=== PATIENT | male | born 1960 | race Caucasian/White ===

== ENCOUNTER 2021-01-29 20:54 | Emergency (ER) | payer OTHER ==
[~2021-01-29] VITALS: Ht 177.8 cm; Wt 111.1 kg
[2021-01-29] MEDS ORDERED: HYDROCODON-ACE1 EAC8 PO (23:30)
[2021-01-30 00:06] VITALS: BP 130/76
== END 2021-01-30 00:06 | disposition home or self-care (01) ==
LOC: M.ERS 20:54
DX: M25.461 Effusion, right knee (principal); I10 Essential (primary) hypertension; E11.9 Type 2 diabetes mellitus without complications; Z86.718 Personal history of other venous thrombosis and embolism

== ENCOUNTER 2021-08-22 16:49 | Inpatient (IN) | payer OTHER ==
[~2021-08-22] VITALS: Ht 177.8 cm; Wt 124.3 kg
[~2021-08-22 16:49] MED LIST: HYDROCODON-ACE1 EAC8 PO
[2021-08-22 17:07] VITALS: BP 130/94
[2021-08-22] MEDS ORDERED: XANAX 0.5 MG0.5 M1 PO (17:11)
[2021-08-22] MEDS ORDERED: GLEEVEC100 MG PO (17:11)
[2021-08-22] MEDS ORDERED: LISINOPRIL10 MG PO (17:11)
[2021-08-22] MEDS ORDERED: GLIPIZIDE 10 MG10 MG PO (17:11)
[2021-08-22 17:49] LABS: ABSOLUTE EOSINOPHILS 0.1 thou/uL (0.0-0.7); ABSOLUTE LYMPHOCYTES 1.3 thou/uL (0.8-5.3); ABSOLUTE MONOCYTES 0.7 thou/uL (0.0-1.2); ABSOLUTE NEUTROPHILS 5.1 thou/uL (1.6-8.1); BASOPHILS 0.3 %; EOSINOPHILS 0.9 %; HEMATOCRIT 36.7 % (42.0-52.0); HEMOGLOBIN 11.9 gm/dL (14.0-18.0); LYMPHOCYTES 18.4 %; MCH 33.9 pg (26.0-34.0); MCHC 32.5 g/dL (28.0-37.0); MCV 104.4 fL (80.0-100.0); MONOCYTES 9.8 %; MPV 6.9 fl. (7.2-11.1); NUCLEATED RBCS 0 /100WBC; PLATELET COUNT* 213 thou/uL (150-400); POLYS 70.6 %; RBC 3.51 mil/uL (4.50-6.00); RDW-CV 16.6 % (10.5-14.5); WBC 7.2 thou/uL (4.0-11.0)
[2021-08-22 17:54] LABS: CALCIUM 8.1 mg/dL (8.5-10.1); CREATININE 1.9 mg/dL (0.6-1.3); POTASSIUM 4.4 mmol/L (3.5-5.1)
[2021-08-22 18:05] LABS: ALBUMIN 2.6 g/dL (3.4-5.0); TOTAL BILIRUBIN 0.5 mg/dL (<0.1-1.0); TOTAL PROTEIN 5.5 g/dL (6.4-8.2)
[2021-08-22 22:14] VITALS: BP 108/66
[2021-08-22 23:14] VITALS: BP 107/60
[2021-08-23] VITALS (19 sets, daily range): BP systolic 49–128; BP diastolic 35–82
--- NOTE | 2021-08-23 11:02 | EKG ---
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1960 Requested By: Miladys Strauss Order Number: [id number] MD: Henry Frazier Measurements Intervals [place] Rate: 161 P: -48 UT: 86 QRS: -83 QRSD: 152 T: 83 QT: 336 QTc: 550 Interpretive Statements Wide QRS tachycardia of unspecified mechanism No previous ECG available for comparison Electronically Signed On 08-23-2021 11:02:46 PEDIATRIC MEDICAL ASSISTANT by Henry Frazier [email or web address] <ELECTRONICALLY SIGNED> By: Henry Frazier MD, [facility] 08/23/21 1102 1716 1716 Henry Frazier MD, [facility] /EPI
--- NOTE | 2021-08-23 11:04 | EKG ---
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[place] : 1960 Requested By: Adam Husain Order Number: [id number] MD: Henry Frazier Measurements Intervals [place] Rate: 147 P: [place]: QRS: -84 QRSD: 177 T: 85 QT: 367 QTc: 575 Interpretive Statements Wide QRS tachycardia which suggest atrial fibrillation with a rapid response RBBB and LAFB No previous ECG available for comparison Electronically Signed On 08-23-2021 11:04:04 QUAHOGGER by Henry Frazier [email or web address] <ELECTRONICALLY SIGNED> By: Henry Frazier MD, [facility] 08/23/21 1104 43 43 Henry Frazier MD, [facility] /EPI
--- NOTE | 2021-08-23 11:06 | EKG ---
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[place] : 1960 Requested By: Adam Husain Order Number: [id number] MD: Henry Frazier Measurements Intervals [place] Rate: 104 P: [place]: QRS: -84 QRSD: 186 T: 87 QT: 355 QTc: 467 Interpretive Statements Atrial fibrillation RBBB and LAFB Abnormal T, consider ischemia, lateral leads Compared to ECG 08/22/2021 19:44:28 T-wave abnormality now present Possible ischemia now present Ventricular response to atrial fibrillation has decreased Electronically Signed On 08-23-2021 11:06:18 REEL BLADE BENDER FURNACE TENDER by Henry Frazier [email or web address] <ELECTRONICALLY SIGNED> By: Henry Frazier MD, FACC 08/23/21 1106 39 39 Henry Frazier MD, [facility] /EPI
--- NOTE | 2021-08-23 12:57 | 2DMMODE ---
[place] [address] 2 D/M-MODE ECHOCARDIOGRAM Name: MARTHA LA Raj Room: [address] ADM IN .R.#: [id number] Admission: 08/22/21 Attend Phys: Miladys Strauss Discharge: Date of : 58 Date of Service: 08/23/21 1257 Report #: [id number] THIS REPORT FOR: cc: Tommy Brand MD, Anthony MD Holkins,Henry Guevara MD [facility] ~ APPROVED REPORT Study performed: 08/23/2021 10:08:00 EXAM: Comprehensive 2D, Doppler, and color-flow Echocardiogram Patient Location: In-Patient Room #: 008 Status: routine BSA: 2.39 HR: 87 bpm BP: 114/71 mmHg Rhythm: Atrial Fibrillation Other Information Study Quality: Good Indications Atrial Fibrillation 2D Dimensions IVSd: 11.68 (7-11mm) LVOT Diam: 22.73 (18-24mm) LVDd: 62.08 mm PWd: 13.02 (7-11mm) Ascending Ao: 33.91 (22-36mm) LVDs: 49.60 (25-40mm) Aortic Root: 33.53 mm Volumes Left Atrial Volume (Systole) LA ESV Index: 45.60 mL/m2 Aortic Valve AoV Peak Roman.: 1.34 m/s AO Peak Gr.: 7.13 mmHg LVOT Max P.78 mmHg AO Mean Gr.: 4.14 mmHg LVOT Mean P.50 mmHg LVOT Max V: 0.83 m/s AO V2 VTI: 19.59 cm LVOT Mean V: 0.57 m/s HOLA (VTI): 2.74 cm2 LVOT V1 VTI: 13.23 [place] [address] 2 D/M-MODE ECHOCARDIOGRAM Name: MARTHA LA Room: [address] IN .R.#: [id number] Admission: 08/22/21 Attend Phys: Miladys Strauss Discharge: Date of : 58 Date of Service: 08/23/21 1257 Report #: [id number] Pulmonary Valve PV Peak Roman.: 0.75 m/s PV Peak Gr.: 2.22 mmHg Tricuspid Valve RAP Estimate: 15.00 mmHg TR Peak Gr.: 29.89 mmHg RVSP: 44.00 mmHg PA Pressure: 44.00 mmHg Left Ventricle Left ventricle is borderline dilated. There is normal LV segmental wall motion. Borderline concentric left ventricular hypertrophy. Left ventricular systolic function is mildly decreased. LVEF is 40-45% This study is not technically sufficient to allow evaluation of the LV diastolic function due to atrial fibrillation. Right Ventricle Right ventricle is borderline dilated. The right ventricular systolic function is normal. Atria Left atrium is moderately dilated. Right atrium is mildly dilated. Aortic Valve Mild aortic valve sclerosis. No aortic regurgitation is present. There is no aortic valvular stenosis. Mitral Valve The mitral valve is normal in structure. Mild mitral regurgitation. No evidence of mitral valve stenosis. Tricuspid Valve The tricuspid valve is normal in structure. Mild tricuspid regurgitation. Mild pulmonary hypertension. Pulmonic Valve The pulmonary valve is normal in structure. There is no pulmonic valvular regurgitation. Great Vessels The aortic root is normal in size. IVC is normal in size and collapses >50% with inspiration. Pericardium There [place] [address] 2 D/M-MODE ECHOCARDIOGRAM Name: MARTHA LA Room: [address] IN .R.#: [id number] Admission: 08/22/21 Attend Phys: Miladys Strauss Discharge: Date of : 58 Date of Service: 08/23/21 1257 Report #: [id number] <Conclusion> Left ventricle is borderline dilated. Borderline concentric left ventricular hypertrophy. Left ventricular systolic function is mildly decreased. LVEF is 40-45% This study is not technically sufficient to allow evaluation of the LV diastolic function due to atrial fibrillation. Right ventricle is borderline dilated. The right ventricular systolic function is normal. Left atrium is moderately dilated. Right atrium is mildly dilated. Mild aortic valve sclerosis. No aortic regurgitation is present. There is no aortic valvular stenosis. The mitral valve is normal in structure. Mild mitral regurgitation. The tricuspid valve is normal in structure. Mild tricuspid regurgitation. Mild pulmonary hypertension. IVC is normal in size and collapses >50% with inspiration. There is no pericardial effusion. There is normal LV segmental wall motion. <ELECTRONICALLY SIGNED> By: Henry Frazier MD, FACC 08/23/21 1257 1257 1257 Henry Frazier MD, FACC /INF
[2021-08-24 08:00] VITALS: BP 123/86
[2021-08-24 10:41] LABS: HEMATOCRIT 37.2 % (42.0-52.0); HEMOGLOBIN 12.2 gm/dL (14.0-18.0); MCH 34.5 pg (26.0-34.0); MCHC 32.7 g/dL (28.0-37.0); MCV 105.5 fL (80.0-100.0); MPV 6.4 fl. (7.2-11.1); RBC 3.53 mil/uL (4.50-6.00); RDW-CV 16.5 % (10.5-14.5); WBC 5.5 thou/uL (4.0-11.0)
[2021-08-24 10:54] LABS: ALBUMIN 2.5 g/dL (3.4-5.0); CALCIUM 7.9 mg/dL (8.5-10.1); CREATININE 1.8 mg/dL (0.6-1.3); POTASSIUM 4.5 mmol/L (3.5-5.1); TOTAL BILIRUBIN 0.6 mg/dL (<0.1-1.0); TOTAL PROTEIN 5.6 g/dL (6.4-8.2)
[2021-08-24 13:40] VITALS: BP 117/74
[2021-08-24] MEDS ORDERED: XARELTO20 MG PO (14:40)
[2021-08-24] MEDS ORDERED: SORINE 80 MG TA80 M1 PO (14:40)
[2021-08-24] MEDS ORDERED: DILTIAZEM 24HR180 M1 PO (14:40)
[2021-08-24 18:43] VITALS: BP 123/83
[2021-08-24 20:00] VITALS: BP 125/71
[2021-08-24 23:02] VITALS: BP 127/82
[2021-08-24 23:37] LABS: URINE BILIRUBIN NEGATIVE (Negative); URINE BLOOD NEGATIVE (Negative); URINE CLARITY CLEAR; URINE COLOR YELLOW; URINE GLUCOSE-RANDOM NEGATIVE (Negative); URINE KETONES NEGATIVE (Negative); URINE LEUKOCYTES-REFLEX NEGATIVE (Negative); URINE NITRITE-REFLEX NEGATIVE (Negative); URINE PROTEIN NEGATIVE (Negative); URINE SPECIFIC GRAVITY 1.025 (1.005-1.030); URINE UROBILINOGEN 0.2 E.U./dl (0.2-1.0)
[2021-08-25 04:00] VITALS: BP 110/70
[2021-08-25 08:00] VITALS: BP 102/69
[2021-08-25 08:16] LABS: HEMATOCRIT 36.4 % (42.0-52.0); HEMOGLOBIN 11.8 gm/dL (14.0-18.0); MCH 34.3 pg (26.0-34.0); MCHC 32.4 g/dL (28.0-37.0); MCV 105.8 fL (80.0-100.0); MPV 6.9 fl. (7.2-11.1); RBC 3.44 mil/uL (4.50-6.00); RDW-CV 16.2 % (10.5-14.5); WBC 5.4 thou/uL (4.0-11.0)
[2021-08-25 08:23] LABS: ALBUMIN 2.5 g/dL (3.4-5.0); CALCIUM 7.8 mg/dL (8.5-10.1); CREATININE 1.6 mg/dL (0.6-1.3); MAGNESIUM 2.5 mg/dL (1.8-2.4); POTASSIUM 4.8 mmol/L (3.5-5.1); TOTAL BILIRUBIN 0.5 mg/dL (<0.1-1.0); TOTAL PROTEIN 5.5 g/dL (6.4-8.2)
[2021-08-25 14:53] VITALS: BP 145/54
--- NOTE | 2021-08-25 15:07 | EKG ---
[place] [address] ELECTROCARDIOGRAM REPORT Name: MARTHA LA Room: [address] ADM IN .R.#: [id number] Admission: 08/22/21 Attend Phys: Miladys Strauss Discharge: Date of : 58 Date of Service: 08/23/21 0549 Report #: [id number] THIS REPORT FOR: //name// [facility] Test Date: 2021-08-23 Test Time: 05:49:35 Pat Name: MARTHA LA Department: Room: [facility] Gender: M Equipment Installation Professional: ABY : 1960 Requested By: Dm Hartmann Order Number: [id number] Reading MD: Gabe Celis Measurements Intervals [place] Rate: 111 P: [place]: QRS: -79 QRSD: 185 T: 88 QT: 360 QTc: 489 Interpretive Statements Atrial fibrillation RBBB and LAFB Baseline wander in lead(s) V2 Compared to ECG 08/22/2021 21:40:15 T-wave abnormality no longer present Possible ischemia no longer present Electronically Signed On 08-25-2021 15:07:37 FLEXIBLE MACHINING SYSTEM MACHINIST by Gabe Celis [email or web address] <ELECTRONICALLY SIGNED> By: Gabe Celis MD, FACC 08/25/21 1507 0549 0549 Gabe Celis MD, FACC /EPI
--- NOTE | 2021-08-25 15:26 | EKG ---
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: : 1960 Requested By: Kate Hernandes Order Number: [id number] Reading MD: Gabe Celis Measurements Intervals [place] Rate: 73 P: [place]: QRS: -83 QRSD: 183 T: 87 QT: 426 QTc: 470 Interpretive Statements Atrial fibrillation RBBB and LAFB Abnormal T, consider ischemia, lateral leads Compared to ECG 08/23/2021 05:49:35 T-wave abnormality now present Possible ischemia now present Electronically Signed On 08-25-2021 15:26:16 CAREER ORIENTATION TEACHER by Gabe Celis [email or web address] <ELECTRONICALLY SIGNED> By: Gabe Celis MD, FACC 08/25/21 1526 1348 1348 Gabe Celis MD, FACC /EPI
[2021-08-25 19:02] VITALS: BP 113/75
[2021-08-25 20:00] VITALS: BP 155/74
[2021-08-26 00:31] VITALS: BP 98/71
[2021-08-26 04:00] VITALS: BP 138/76
[2021-08-26 08:00] VITALS: BP 145/76
[2021-08-26] MEDS ORDERED: DOXYCYCLINE 10100 MG PO (08:29)
[2021-08-26] MEDS ORDERED: CEFDINIR300 MG PO (08:29)
[2021-08-26] MEDS ORDERED: LASIX 40 MG TAB40 MG PO (08:29)
[2021-08-26 08:44] LABS: HEMATOCRIT 37.7 % (42.0-52.0); HEMOGLOBIN 12.1 gm/dL (14.0-18.0); MCH 33.8 pg (26.0-34.0); MCHC 32.1 g/dL (28.0-37.0); MCV 105.4 fL (80.0-100.0); MPV 6.8 fl. (7.2-11.1); RBC 3.58 mil/uL (4.50-6.00); RDW-CV 16.6 % (10.5-14.5); WBC 5.6 thou/uL (4.0-11.0)
[2021-08-26 08:59] LABS: ALBUMIN 2.5 g/dL (3.4-5.0); CALCIUM 7.8 mg/dL (8.5-10.1); CREATININE 1.4 mg/dL (0.6-1.3); MAGNESIUM 2.4 mg/dL (1.8-2.4); POTASSIUM 4.4 mmol/L (3.5-5.1); TOTAL BILIRUBIN 0.6 mg/dL (<0.1-1.0); TOTAL PROTEIN 5.6 g/dL (6.4-8.2)
[2021-08-26 12:36] VITALS: BP 145/76
== END 2021-08-26 13:30 | disposition home or self-care (01) | DRG 177 ==
LOC: M.ERS 16:49 → M.ICU 18:42 → M.TBA-ER 18:42 → M.ICU 22:39 → M.2W 08-24 06:47
PROVIDERS: Emergency Medicine Emergency Medical Services; Internal Medicine; ADMIT Internal Medicine; ATTEND Internal Medicine
DX: J15.6 Pneumonia due to other Gram-negative bacteria (principal); I50.41 Acute combined systolic (congestive) and diastolic (congestive) heart failure; J96.01 Acute respiratory failure with hypoxia; I48.92 Unspecified atrial flutter; N17.9 Acute kidney failure, unspecified; I42.9 Cardiomyopathy, unspecified; Z20.822 Contact with and (suspected) exposure to COVID-19; E11.9 Type 2 diabetes mellitus without complications; I48.91 Unspecified atrial fibrillation; I11.0 Hypertensive heart disease with heart failure; I27.20 Pulmonary hypertension, unspecified; M10.9 Gout, unspecified; E66.9 Obesity, unspecified; Z68.39 Body mass index [BMI] 39.0-39.9, adult; Z86.718 Personal history of other venous thrombosis and embolism; Z79.899 Other long term (current) drug therapy